=== PATIENT | female | born 1955 | race Hispanic/Latino ===

== ENCOUNTER 2017-12-21 18:19 | Inpatient (IN) | payer SELFPAY ==
[~2017-12-21] VITALS: Ht 160 cm; Wt 92.9 kg
[2017-12-21 19:49] LABS: BASOPHILS % (AUTO) 0.2 % (0.0-5.0); EOSINOPHILS % (AUTO) 0.2 % (0.0-8.0); LYMPHOCYTES % (AUTO) 4.4 % (21.0-51.0); MEAN CORPUSCULAR HEMOGLOBIN 23.6 pg (27.0-33.0); MEAN CORPUSCULAR HGB CONC 32.3 g/dL (32.0-36.0); MEAN CORPUSCULAR VOLUME 73.2 fL (79-99); MONOCYTES % (AUTO) 8.2 % (3.0-13.0); NUCLEATED RED BLOOD CELLS 0.1 % (0.0-0.19); PLATELET COUNT (AUTO) 68 K/uL (130-400); RED BLOOD CELL COUNT(AUTO) 2.74 MIL/uL (4.00-5.50); WHITE BLOOD COUNT (AUTO) 6.9 K/uL (4.8-10.8)
[2017-12-21 19:58] LABS: POTASSIUM 4.3 mmol/L (3.5-5.1)
[2017-12-21 20:01] LABS: INR 1.28 (0.85-1.15); PARTIAL THROMBOPLASTIN TIME 35.9 SEC (26.3-35.5); PROTHROMBIN TIME 13.4 SEC (9.6-11.6)
[2017-12-21 20:02] LABS: ALBUMIN 1.6 g/dL (3.5-5.0); BILIRUBIN,TOTAL 2.6 mg/dL (0.2-1.0); TOTAL PROTEIN, SERUM 6.6 g/dL (6.0-8.3)
[2017-12-21 20:08] LABS: HEMATOCRIT 20.1 % (36-48)
[2017-12-21 20:09] LABS: B-TYPE NATRIURETIC PEPTIDE 91 pg/mL (0-100)
[2017-12-21 20:21] LABS: PLATELET MORPHOLOGY COMMENT DECREASED
[2017-12-21 20:43] LABS: RAPID GROUP A STREP NEGATIVE (NEGATIVE)
[2017-12-21] MEDS ORDERED: LACTULOSE 20 GM/30 ML UDCUP ONE ×2 (20:56→21:47)
[2017-12-21] MEDS ORDERED: SODIUM CHLORIDE 0.9% 500ML 500 ML IV ONE (20:56)
[2017-12-21] MEDS ORDERED: IOPAMIDOL-370 75 ML VIAL IV ONE (21:11)
[2017-12-21] MEDS ORDERED: CEFTRIAXONE SODIUM 1 GM ONE ×2 (22:10→22:20)
[2017-12-21] MEDS ORDERED: METRONIDAZOLE 500 MG TABLET ONE (22:31)
[2017-12-22] VITALS (10 sets, daily range): BP systolic 91–111; BP diastolic 49–60
[2017-12-22] MEDS ORDERED: ACETAMINOPHEN 325 MG TAB ONE (02:36)
[2017-12-22] MEDS: PANTOPRAZOLE 40 MG/VIAL IVP SCH ×2 (06:30→19:23)
[2017-12-22] MEDS ORDERED: SODIUM CHLORIDE 0.9% 10 ML VIAL IVP PRN (06:45)
[2017-12-22] MEDS ORDERED: LACTULOSE 20 GM/30 ML UDCUP PO PRN (09:30)
[2017-12-22] MEDS ORDERED: DEXTROSE 50%-WATER 50 ML DISP.SYRIN IV PRN (09:30)
[2017-12-22] MEDS ORDERED: ONDANSETRON HCL 4 MG/2 ML VIAL IVP PRN (09:30)
[2017-12-22] MEDS ORDERED: MORPHINE SULFATE 2 MG/ML 1ML SYG IM PRN (09:30)
[2017-12-22] MEDS ORDERED: VANCOMYCIN HCL 1 GM VIAL IV SCH (09:30)
[2017-12-22] MEDS ORDERED: ACETAMINOPHEN 325 MG TAB PO PRN (09:30)
[2017-12-22] MEDS ORDERED: HYDRALAZINE HCL 20 MG/ML VIAL IV PRN (09:30)
[2017-12-22] MEDS ORDERED: RENAL DOSE IV PRN (09:30)
[2017-12-22] MEDS ORDERED: GLUCAGON 1MG KIT 1 MG ML IM PRN (09:30)
[2017-12-22] MEDS: INSULIN HUMULIN R 100 UNIT/ML 3ML SQ SCH ×3 (11:30→21:37)
[2017-12-22] MEDS ORDERED: ALBUMIN (HUMAN) 25% 200 ML IV SCH (12:00)
[2017-12-22] MEDS ORDERED: VANCOMYCIN PROTOCOL PER PHARMACY IV SCH (13:15)
[2017-12-22] MEDS ORDERED: VANCOMYCIN 1.5 GM in SODIUM CHLORIDE 0.9% 250 ML IV ONE (14:00)
[2017-12-22] MEDS ORDERED: COMPOUND IV REFRIGERATED 1 EACH IVSOLN MISC PRN (14:30)
[2017-12-22 14:38] LABS: APPEARANCE BODY FLUID SLIGHTLY CLOUDY (CLEAR); SPECIMENTYPE,BODY FLUID PARACENTESIS
[2017-12-22 14:39] LABS: COLOR,BODY FLUID LT YELLOW (LT YELLOW); TOTAL VOLUME,BODY FLUID 6600 mL
[2017-12-22 14:42] LABS: BODY FLUID RBC 950 /cu. mm.; BODY FLUID WBC 143 /cu. mm.
[2017-12-22 14:49] LABS: BF LYMPHOCYTE 11 %
[2017-12-22 16:36] LABS: APPEARANCE,URINE Clear (CLEAR); BILIRUBIN,URINE Negative (NEGATIVE); COLOR,URINE Dark Yellow (YELLOW); GLUCOSE, URINE (UA) 250 mg/dL (NEGATIVE); KETONES,URINE Negative (NEGATIVE); LEUKOCYTE ESTERASE ,URINE Negative (NEGATIVE); NITRATE,URINE Negative (NEGATIVE); OCCULT BLOOD,URINE Moderate (NEGATIVE); PROTEIN,URINE Negative (NEGATIVE)
[2017-12-22 16:50] LABS: BACTERIA,URINE Rare /HPF (None Seen); WBC,URINE 0-1 /HPF (0-1)
[2017-12-22] MEDS: CEFTRIAXONE SODIUM 1 GM IVP SCH (21:27)
[2017-12-23] MEDS ORDERED: VANCOMYCIN 750 GM in SODIUM CHLORIDE 0.9% 250 ML IV SCH (02:00)
[2017-12-23] MEDS ORDERED: VANCOMYCIN 1GM+NS 250ML IV ONE (02:00)
[2017-12-23 03:10] VITALS: BP 104/48
[2017-12-23] MEDS ORDERED: SUCR1TAB2 PO (03:35)
[2017-12-23] MEDS ORDERED: BENZ-51 PO (03:35)
[2017-12-23] MEDS ORDERED: [UNRECOGNIZED DRUG - CODE] PO (03:35)
[2017-12-23 05:44] LABS: BASOPHILS % (AUTO) 0.4 % (0.0-5.0); HEMATOCRIT 25.1 % (36-48); LYMPHOCYTES % (AUTO) 4.3 % (21.0-51.0); MEAN CORPUSCULAR HEMOGLOBIN 24.6 pg (27.0-33.0); MEAN CORPUSCULAR VOLUME 74.6 fL (79-99); MONOCYTES % (AUTO) 8.2 % (3.0-13.0); NEUTROPHILS % (AUTO) 86.1 % (40.0-77.0); PLATELET COUNT (AUTO) 61 K/uL (130-400); RED BLOOD CELL COUNT(AUTO) 3.36 MIL/uL (4.00-5.50); WHITE BLOOD COUNT (AUTO) 7.1 K/uL (4.8-10.8)
[2017-12-23] MEDS: PANTOPRAZOLE 40 MG/VIAL IVP SCH (05:53)
[2017-12-23 06:07] LABS: ALBUMIN 1.9 g/dL (3.5-5.0); BILIRUBIN,DIRECT 1.3 mg/dL (0.0-0.3); BILIRUBIN,TOTAL 2.2 mg/dL (0.2-1.0); CREATININE 0.9 mg/dL (0.5-1.5); POTASSIUM 3.8 mmol/L (3.5-5.1); TOTAL PROTEIN, SERUM 5.8 g/dL (6.0-8.3)
[2017-12-23] MEDS: INSULIN HUMULIN R 100 UNIT/ML 3ML SQ SCH ×4 (06:24→21:17)
[2017-12-23 08:00] VITALS: BP 93/45
[2017-12-23] MEDS: PANTOPRAZOLE SODIUM 40 MG TABLET.DR PO SCH ×2 (08:29→19:57)
[2017-12-23] MEDS: FUROSEMIDE 10 MG/ML 4ML VIAL IV SCH (08:30)
[2017-12-23 11:00] VITALS: BP 99/45
[2017-12-23] MEDS: VANCOMYCIN 0.75 GM in SODIUM CHLORIDE 0.9% 250 ML IV SCH ×2 (13:03→23:29)
[2017-12-23 16:00] VITALS: BP 106/51
[2017-12-23 19:50] VITALS: BP 112/44
[2017-12-23] MEDS: CEFTRIAXONE SODIUM 1 GM IVP SCH (19:57)
[2017-12-23 23:40] VITALS: BP 101/46
[2017-12-24 03:43] VITALS: BP 97/48
[2017-12-24] MEDS: INSULIN HUMULIN R 100 UNIT/ML 3ML SQ SCH ×4 (06:02→22:44)
[2017-12-24 08:00] VITALS: BP 98/40
[2017-12-24 08:28] VITALS: BP 156/71
[2017-12-24] MEDS: FUROSEMIDE 10 MG/ML 4ML VIAL IV SCH (09:00)
[2017-12-24] MEDS: PANTOPRAZOLE SODIUM 40 MG TABLET.DR PO SCH ×2 (09:32→19:58)
[2017-12-24 11:44] VITALS: BP 112/48
[2017-12-24] MEDS: VANCOMYCIN 0.75 GM in SODIUM CHLORIDE 0.9% 250 ML IV SCH ×2 (11:46→23:14)
[2017-12-24 19:55] VITALS: BP 108/43
[2017-12-24] MEDS: CEFTRIAXONE SODIUM 1 GM IVP SCH (19:58)
[2017-12-24 23:15] VITALS: BP 123/60
[2017-12-24] MEDS: GUAIFENESIN-DM 200/20 MG 10 ML PO PRN (23:20)
[2017-12-25 04:11] VITALS: BP 111/31
[2017-12-25 05:43] LABS: BASOPHILS % (AUTO) 0.4 % (0.0-5.0); HEMATOCRIT 25.4 % (36-48); LYMPHOCYTES % (AUTO) 4.8 % (21.0-51.0); MEAN CORPUSCULAR HEMOGLOBIN 24.6 pg (27.0-33.0); MEAN CORPUSCULAR HGB CONC 32.5 g/dL (32.0-36.0); MEAN CORPUSCULAR VOLUME 75.6 fL (79-99); MONOCYTES % (AUTO) 7.3 % (3.0-13.0); NEUTROPHILS % (AUTO) 86.5 % (40.0-77.0); PLATELET COUNT (AUTO) 53 K/uL (130-400); RED BLOOD CELL COUNT(AUTO) 3.36 MIL/uL (4.00-5.50); RED CELL DISTRIBUTION WIDTH 22.3 % (11.0-15.5); WHITE BLOOD COUNT (AUTO) 8.4 K/uL (4.8-10.8)
[2017-12-25 05:52] LABS: CREATININE 0.9 mg/dL (0.5-1.5); MAGNESIUM 1.9 mg/dL (1.80-2.40); POTASSIUM 4.1 mmol/L (3.5-5.1)
[2017-12-25] MEDS: INSULIN HUMULIN R 100 UNIT/ML 3ML SQ SCH ×4 (06:32→22:46)
[2017-12-25 08:00] VITALS: BP 117/50
[2017-12-25] MEDS: PANTOPRAZOLE SODIUM 40 MG TABLET.DR PO SCH ×2 (09:10→19:59)
[2017-12-25] MEDS: VANCOMYCIN 0.75 GM in SODIUM CHLORIDE 0.9% 250 ML IV SCH ×2 (09:10→20:00)
[2017-12-25] MEDS: LACTULOSE 20 GM/30 ML UDCUP PO SCH (09:10)
[2017-12-25] MEDS: FUROSEMIDE 10 MG/ML 4ML VIAL IV SCH (09:10)
[2017-12-25 11:31] VITALS: BP 111/42
[2017-12-25 15:33] VITALS: BP 103/52
[2017-12-25] MEDS: CEFTRIAXONE SODIUM 1 GM IVP SCH (19:58)
[2017-12-25 20:00] VITALS: BP 118/61
[2017-12-26] VITALS: BP 106/52
[2017-12-26 04:00] VITALS: BP 122/61
[2017-12-26] MEDS: INSULIN HUMULIN R 100 UNIT/ML 3ML SQ SCH ×3 (05:43→21:19)
[2017-12-26 07:30] VITALS: BP 118/43
[2017-12-26] MEDS: LACTULOSE 20 GM/30 ML UDCUP PO SCH (08:41)
[2017-12-26] MEDS: VANCOMYCIN 0.75 GM in SODIUM CHLORIDE 0.9% 250 ML IV SCH (08:41)
[2017-12-26] MEDS: PANTOPRAZOLE SODIUM 40 MG TABLET.DR PO SCH ×2 (08:41→20:20)
[2017-12-26] MEDS: FUROSEMIDE 10 MG/ML 4ML VIAL IV SCH (08:44)
[2017-12-26 11:00] VITALS: BP 117/51
[2017-12-26] MEDS ORDERED: CEFTRIAXONE 2GM+NS 100ML 100 ML IV SCH (13:15)
[2017-12-26 16:00] VITALS: BP 107/50
[2017-12-26] MEDS: CEFTRIAXONE SODIUM 2 GM VIAL IVP SCH (16:06)
[2017-12-26 20:00] VITALS: BP 104/52
[2017-12-26] MEDS: GUAIFENESIN-DM 200/20 MG 10 ML PO PRN (20:20)
[2017-12-27] VITALS: BP 103/52
[2017-12-27 04:00] VITALS: BP 118/60
[2017-12-27 07:30] VITALS: BP 124/54
[2017-12-27] MEDS: INSULIN HUMULIN R 100 UNIT/ML 3ML SQ SCH ×4 (07:30→21:09)
[2017-12-27] MEDS: PANTOPRAZOLE SODIUM 40 MG TABLET.DR PO SCH ×2 (09:59→19:58)
[2017-12-27] MEDS: FUROSEMIDE 10 MG/ML 4ML VIAL IV SCH (09:59)
[2017-12-27] MEDS: LACTULOSE 20 GM/30 ML UDCUP PO SCH (09:59)
[2017-12-27 11:00] VITALS: BP 109/50
[2017-12-27] MEDS: CEFTRIAXONE SODIUM 2 GM VIAL IVP SCH (12:09)
[2017-12-27 16:00] VITALS: BP 112/61
[2017-12-27 20:00] VITALS: BP 97/46
[2017-12-28] VITALS (7 sets, daily range): BP systolic 100–141; BP diastolic 40–68
[2017-12-28] MEDS: INSULIN HUMULIN R 100 UNIT/ML 3ML SQ SCH ×4 (05:58→20:45)
[2017-12-28] MEDS: FUROSEMIDE 10 MG/ML 4ML VIAL IV SCH (08:29)
[2017-12-28] MEDS: LACTULOSE 20 GM/30 ML UDCUP PO SCH (08:29)
[2017-12-28] MEDS: PANTOPRAZOLE SODIUM 40 MG TABLET.DR PO SCH ×2 (08:29→20:11)
[2017-12-28] MEDS: CEFTRIAXONE SODIUM 2 GM VIAL IVP SCH (13:09)
[2017-12-28 14:38] LABS: INR 1.28 (0.85-1.15); PROTHROMBIN TIME 13.4 SEC (9.6-11.6)
[2017-12-28] MEDS ORDERED: MORPHINE SULFATE 4 MG/1ML SYG IM PRN (15:30)
[2017-12-29 04:10] VITALS: BP 134/62
[2017-12-29 04:47] LABS: BASOPHILS % (AUTO) 0.5 % (0.0-5.0); EOSINOPHILS % (AUTO) 2.5 % (0.0-8.0); HEMATOCRIT 23.4 % (36-48); LYMPHOCYTES % (AUTO) 6.8 % (21.0-51.0); MEAN CORPUSCULAR HEMOGLOBIN 26.9 pg (27.0-33.0); MEAN CORPUSCULAR HGB CONC 34.9 g/dL (32.0-36.0); MEAN CORPUSCULAR VOLUME 77.3 fL (79-99); MONOCYTES % (AUTO) 8.2 % (3.0-13.0); PLATELET COUNT (AUTO) 61 K/uL (130-400); RED BLOOD CELL COUNT(AUTO) 3.03 MIL/uL (4.00-5.50); RED CELL DISTRIBUTION WIDTH 24.2 % (11.0-15.5); WHITE BLOOD COUNT (AUTO) 5.6 K/uL (4.8-10.8)
[2017-12-29 04:54] LABS: CREATININE 1.2 mg/dL (0.5-1.5); POTASSIUM 3.7 mmol/L (3.5-5.1)
[2017-12-29 05:07] LABS: PLATELET MORPHOLOGY COMMENT DECREASED
[2017-12-29] MEDS: INSULIN HUMULIN R 100 UNIT/ML 3ML SQ SCH (06:23)
[2017-12-29 07:54] VITALS: BP 120/62
[2017-12-29] MEDS: LACTULOSE 20 GM/30 ML UDCUP PO SCH (09:47)
[2017-12-29] MEDS: PANTOPRAZOLE SODIUM 40 MG TABLET.DR PO SCH (09:48)
[2017-12-29] MEDS: FUROSEMIDE 10 MG/ML 4ML VIAL IV SCH (09:48)
[2017-12-29] MEDS ORDERED: CEFTRIAXONE 2GM+NS 100ML 100 ML IV SCH (10:00)
== END 2017-12-29 09:57 | disposition home or self-care (01) | DRG 811 ==
LOC: EDH 18:19 → OBSVTOIN 18:20 → EDHIP 18:20 → INTOOBSV 18:20 → 4CH 12-22 05:53 → 4BH 12-22 10:14
PROVIDERS: ADMIT Family Medicine; ATTEND Family Medicine
PROC: 02HV33Z Insertion of Infusion Device into Superior Vena Cava, Percutaneous Approach (ICD-10-PCS; 2017-12-21)
PROC: 0W9G3ZZ Drainage of Peritoneal Cavity, Percutaneous Approach (ICD-10-PCS; principal; 2017-12-22)
PROC: 30233N1 Transfusion of Nonautologous Red Blood Cells into Peripheral Vein, Percutaneous Approach (ICD-10-PCS; 2017-12-22)
DX: D64.9 Anemia, unspecified (principal); K65.2 Spontaneous bacterial peritonitis; J18.9 Pneumonia, unspecified organism; R18.8 Other ascites; D69.6 Thrombocytopenia, unspecified; R78.81 Bacteremia; E87.1 Hypo-osmolality and hyponatremia; K74.60 Unspecified cirrhosis of liver; B95.4 Other streptococcus as the cause of diseases classified elsewhere; B96.89 Other specified bacterial agents as the cause of diseases classified elsewhere; E11.9 Type 2 diabetes mellitus without complications; E78.5 Hyperlipidemia, unspecified; I10 Essential (primary) hypertension; I35.8 Other nonrheumatic aortic valve disorders; Z83.3 Family history of diabetes mellitus; Z85.3 Personal history of malignant neoplasm of breast; Z87.11 Personal history of peptic ulcer disease; Z90.710 Acquired absence of both cervix and uterus; Z90.49 Acquired absence of other specified parts of digestive tract; Z88.0 Allergy status to penicillin; Z90.11 Acquired absence of right breast and nipple; Z28.21 Immunization not carried out because of patient refusal
CPT/HCPCS: 36415; 49083; 71045; 74177; 80048; 80053; 80076; 80202; 81001; 82140; 82270; 82378; 82948; 83605; 83735; 83880; 85025; 85610; 85730; 86316; 86850; 86900; 86901; 86922; 87040; 87071; 87088; 87186; 87205; 87507; 87633; 87804; 87880; 88108; 89051; 93005; 93306; 93970; 99291; A4218; C9113; J0696; J1815; J1940; J3370; J7030; J7040; P9016; P9046; Q9967